=== PATIENT | male | born 1995 | race Caucasian/White ===

== ENCOUNTER 2019-02-21 14:48 | Observation (INO) | payer OTHER ==
[2019-02-21] MEDS ORDERED: Sodium Chloride 0.9% 1,000 ML IV ONE (14:53)
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
[2019-02-21] MEDS ORDERED: Iopamidol 755 Mg/ML 100 ML Bottle IVPUSH STA (15:49)
--- NOTE | 2019-02-21 16:03 | CR ---
EXAM DATE: 02/21/19 PATIENT'S AGE: 23 Left knee: AP, lateral and sunrise patellar views left knee were obtained. Comparison: No previous left knee imaging is available. Medial and lateral joint compartments are maintained in height. No joint effusion is seen. Left patellofemoral joint is unremarkable. Impression: 1. No abnormality is identified on left knee exam. Diagnostic code #2 This report was dictated in [place] Standard Time Report Signed by Proxy. YULIA
[2019-02-21 16:14] LABS: BLOOD UREA NITROGEN,BUN 14 mg/dL (7.0-18.0); CARBON DIOXIDE,CO2 26.9 mmol/L (21.0-32.0); CHLORIDE,CL 101 mmol/L (98-107); GLUCOSE RANDOM 100 mg/dL (74-106); LIPASE 92 U/L (73-393); POTASSIUM,K 3.9 mmol/L (3.5-5.1); SODIUM,NA 138 mmol/L (136-148)
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
[2019-02-21] MEDS ORDERED: Ondansetron 4 MG/2 ML SDV IVPUSH PRN (18:24)
[2019-02-21] MEDS: Acetaminophen/oxyCODONE 325-5 MG Tab PO PRN (18:43)
[2019-02-21] MEDS: Lactated Ringers 1,000 ML IV SCH (18:43)
[2019-02-21] MEDS ORDERED: FLU Vacc QS2019-20(6MOS+)/PF 60 MCG/0.5 ML SYRINGE IM ONE (18:45)
[2019-02-22] MEDS: Acetaminophen/oxyCODONE 325-5 MG Tab PO PRN ×2 (02:23→09:35)
[2019-02-22] MEDS: Lactated Ringers 1,000 ML IV SCH (04:40)
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
== END 2019-02-22 11:15 | disposition home or self-care (01) ==
LOC: MW.ED 14:48 → MW.MS 18:01
PROVIDERS: ADMIT Surgery; ATTEND Surgery
DX: S00.212A Abrasion of left eyelid and periocular area, initial encounter (principal); S60.511A Abrasion of right hand, initial encounter; S81.012A Laceration without foreign body, left knee, initial encounter; S40.211A Abrasion of right shoulder, initial encounter; V59.40XA Driver of pick-up truck or van injured in collision with unspecified motor vehicles in traffic accident, initial encounter; Y93.89 Activity, other specified; Y92.410 Unspecified street and highway as the place of occurrence of the external cause
CPT/HCPCS: 36415; 70450; 71260; 72125; 72128; 72131; 73562; 74177; 80053; 81003; 83690; 84484; 85025; 85610; 86850; 86900; 86901; 93005; 96360; 96361; 99285; A9270; G0378; J2001; J7030; J7120; Q9967